=== PATIENT | female | born 1955 | race Caucasian/White ===

== ENCOUNTER → 2016-11-03 | Outpatient (CLI) | payer MEDICARE ==
[~2016-11-03] MED LIST: AMLO10TA2 PO; BUPR100T6 PO; CALC1CAP8 PO; HALO50AM4 IM; HYDR-3307 PO; MULT-26 PO; PARO10TA24 PO
== END | disposition home or self-care (01) ==
LOC: CFH 13:12
PROVIDERS: ATTEND Family Medicine
DX: Z12.31 Encounter for screening mammogram for malignant neoplasm of breast (principal)
CPT/HCPCS: G0202

== ENCOUNTER → 2017-11-27 | Outpatient (CLI) | payer MEDICARE ==
[~2017-11-27] MED LIST changes: -PARO10TA24 PO; +PARO10TA56 PO
== END | disposition home or self-care (01) ==
LOC: CFH 13:39
PROVIDERS: ATTEND Family Medicine
DX: Z12.31 Encounter for screening mammogram for malignant neoplasm of breast (principal)
CPT/HCPCS: 77067

== ENCOUNTER → 2018-12-05 | Outpatient (CLI) | payer MEDICARE ==
[~2018-12-05] MED LIST changes: -AMLO10TA2 PO; +AMLO10TA8 PO
== END | disposition home or self-care (01) ==
LOC: CFH 13:57
PROVIDERS: ATTEND Family Medicine
DX: Z12.31 Encounter for screening mammogram for malignant neoplasm of breast (principal)
CPT/HCPCS: 77063; 77067

== ENCOUNTER → 2019-12-16 | Outpatient (CLI) | payer MEDICARE ==
[~2019-12-16] MED LIST changes: +HYDR-3246 PO; -HYDR-3307 PO
== END | disposition home or self-care (01) ==
LOC: CFH 11:34
PROVIDERS: ATTEND Family Medicine
DX: Z12.31 Encounter for screening mammogram for malignant neoplasm of breast (principal); N64.89 Other specified disorders of breast
CPT/HCPCS: 77063; 77067

== ENCOUNTER → 2020-12-16 | Outpatient (CLI) | payer MEDICARE ==
[~2020-12-16] MED LIST changes: +AMLO-211 PO; -AMLO10TA8 PO; -HYDR-3246 PO; +HYDR-3248 PO
== END | disposition home or self-care (01) ==
LOC: CFH 13:23
PROVIDERS: ATTEND Radiology Radiation Oncology
DX: Z12.31 Encounter for screening mammogram for malignant neoplasm of breast (principal)
CPT/HCPCS: 77063; 77067

== ENCOUNTER 2021-03-10 10:26 | Outpatient (CLI) | payer MEDICARE | END 2021-03-10 23:59 | disposition home or self-care (01) | LOC: CFH 10:26 → RAD 23:59 | PROVIDERS: ATTEND Family Medicine | DX: Z13.820 Encounter for screening for osteoporosis (principal); M81.0 Age-related osteoporosis without current pathological fracture; M47.817 Spondylosis without myelopathy or radiculopathy, lumbosacral region; M51.36 Other intervertebral disc degeneration, lumbar region; N95.9 Unspecified menopausal and perimenopausal disorder | CPT/HCPCS: 72110; 77080 ==